=== PATIENT | female | born 1970 | race Caucasian/White ===

== ENCOUNTER → 2016-12-10 | Outpatient (REF) | LOC: ZLAB.WCH 10:52 | DX: Z01.89 Encounter for other specified special examinations (principal) ==

== ENCOUNTER → 2016-12-11 | Outpatient (REF) | LOC: ZLAB.WCH 11:30 | DX: Z01.89 Encounter for other specified special examinations (principal) ==

== ENCOUNTER → 2017-02-24 | Outpatient (REF) ==
[2017-02-24 19:11] LABS: THYROID STIMULATING HORMONE 0.646 uIU/mL (0.465-4.680)
== END ==
LOC: ZLAB.WCH 18:09
PROVIDERS: Nurse Practitioner Family
DX: Z01.89 Encounter for other specified special examinations (principal)